=== PATIENT | female | born 1940 | race Caucasian/White ===

== ENCOUNTER 2020-03-10 20:16 | Inpatient (IN) ==
[2020-03-10] MEDS ORDERED: 0.9 % SODIUM CHLORIDE 1,000 ML IV ONE (20:32)
[2020-03-10] MEDS ORDERED: ONDANSETRON 4 MG/2 ML VIAL IV ONE (20:32)
--- NOTE | 2020-03-10 20:36 | Emergency Department Note ---
Abdominal Pain HPI General Chief Complaint: Abdominal Pain Stated Complaint: abd. pain Time Seen by Provider: 03/10/20 20:27 Source: patient Mode of arrival: wheelchair Limitations: no limitations History of Present Illness HPI Narrative: Narrative: 79-year-old female presents with upper abdominal pain. Mid upper abdomen but also into the right upper quadrant. Has had this in the past but not nearly this severe. Usually takes Prilosec in rest and it goes away. States this started Tuesday after eating something greasy. She took a Prilosec and it went away after a few hours. States today it started at about 3:00. States she did eat a lot of cheese today. Does have some nausea related to the pain. No vomiting urine. Has had a couple episodes of diarrhea the last couple of days. Denies any constipation issues. No longer has her appendix but does still have her gallbladder. Was told a long time ago she has gallstones but has not had a problem that she knows of until recently. No cough or cold symptoms. No other home treatments other than the Prilosec. Denies any chest pain or shortness of breath. Related Data Home Medications Medication Instructions Recorded Confirmed clopidogrel 75 mg PO DAILY 02/04/19 02/04/19 codeine-guaifenesin 118 ml PO PRN PRN 02/04/19 02/04/19 lisinopril 10 mg PO DAILY 02/04/19 02/04/19 pramipexole 0.25 mg PO HS 02/04/19 02/04/19 aspirin 81 mg tablet,delayed 81 mg PO .COMPLEX 09/18/19 09/18/19 release atorvastatin 10 mg tablet 10 mg PO QDAY 09/18/19 03/10/20 cholecalciferol (vitamin D3) 25 25 mcg PO QDAY 09/18/19 09/18/19 mcg (1,000 unit) capsule clopidogrel 75 mg tablet 75 mg PO QDAY 09/18/19 09/18/19 glucosamine HCl 500 mg tablet 500 mg PO QDAY tab 09/18/19 09/18/19 losartan 50 mg tablet 50 mg PO QDAY 09/18/19 03/10/20 nitroglycerin 0.4 mg sublingual 0.4 mg SUBLINGUAL ONCE 09/18/19 09/18/19 tablet omeprazole 20 mg capsule,delayed 20 mg PO QDAY 09/18/19 03/10/20 release pramipexole 0.25 mg tablet 0.25 mg PO QDAY 09/18/19 09/18/19 Allergies Allergy/AdvReac Type Severity Reaction Status Date / Time alendronate sodium Allergy Unknown nausea Verified 03/10/20 20:21 [From Fosamax] escitalopram Allergy Unknown constipatio Verified 03/10/20 20:21 n lisinopril Allergy Unknown cough Verified 03/10/20 20:21 sulfasalazine Allergy Unknown nausea Verified 03/10/20 20:21 [From Azulfidine] codeine AdvReac Intermediate Nausea Verified 03/10/20 20:21 Review of Systems ROS ROS Narrative: Narrative: All systems ED: reviewed and negative except as stated. PFSH Narrative Patient History Narrative: Narrative: Medical/Surgical/Family History All Active Problems (Updated 03/10/20 @ 21:54 by SULEMA Fox) Abdominal pain (Acute) Cholecystitis (Acute) Adjustment disorder with depressed mood (Acute) Muscle strain of left shoulder (Chronic) Chest pain (Chronic) Osteopenia (Chronic) Cramp in lower leg (Chronic) Subacromial bursitis (Chronic) Low back pain (Chronic) Constipation (Chronic) Ulcerative colitis (Chronic) GERD (gastroesophageal reflux disease) (Chronic) Temporomandibular joint disorder (Chronic) Venous insufficiency of leg (Chronic) Ventricular premature beats (Chronic) Coronary arteriosclerosis (Chronic) Essential hypertension (Chronic) Insomnia (Chronic) Depressive disorder (Chronic) Hyperlipidemia (Chronic) Subclinical hypothyroidism (Chronic) Dehydration (Chronic) Medical History Chest pain (Chronic) Constipation (Chronic) Coronary arteriosclerosis (Chronic) Cramp in lower leg (Chronic) Depressive disorder (Chronic) Essential hypertension (Chronic) GERD (gastroesophageal reflux disease) (Chronic) Hyperlipidemia (Chronic) Insomnia (Chronic) Low back pain (Chronic) Muscle strain of left shoulder (Chronic) Osteopenia (Chronic) Subacromial bursitis (Chronic) Subclinical hypothyroidism (Chronic) Temporomandibular joint disorder (Chronic) Ulcerative colitis (Chronic) Venous insufficiency of leg (Chronic) Ventricular premature beats (Chronic) Surgical History History of colonoscopy (Chronic) Family History Father Myocardial infarction Daughter Hyperlipidemia Social History Smoking Status: Never smoker Alcohol Intake Frequency: holiday/special occasion only Substance Use: does not use Exam Narrative Narrative: Narrative: General Limitations: no limitations General appearance: Present alert and grimacing Head Head: Present atraumatic and normocephalic Eye Eye: Present normal appearance; Absent conjunctival injection ENT ENT: Present normal exam and mucous membranes moist Chest Chest: Present symmetric chest wall rise Respiratory Respiratory: Present normal lung sounds bilaterally; Absent respiratory distress, rales/crackles, wheezes, stridor and accessory muscle use Cardiovascular Cardiovascular: Present regular rate and normal heart sounds Adbominal Abdominal: Present soft, tenderness (Mid epigastric and right upper quadrant) and normal bowel sounds; Absent distention, guarding, rebound and rigidity Extremities Extremities: Present normal inspection; Absent pedal edema Back Back: Absent CVA tenderness (R) and CVA tenderness (L) Neurological Neurological: Present alert and oriented X3; Absent motor sensory deficit Psychiatric Psychiatric: Present normal affect and normal mood Skin Skin: Present warm (WNL), dry, intact and normal color Course Course Course Narrative: Patient has gallstones, multiple and thickened wall. Acute cholecystitis. At 1950 I did speak with Dr. Giron, surgeon, who agrees accept this patient. If not any beds available to the morning for that reason patient will remain in the ER until bed becomes available. He will concur. Pain and nausea medication orders, Zosyn, IV fluids, n.p.o. Vital Signs Vital signs: Vital Signs Temperature 96.7 F L 03/10/20 20:17 Pulse Rate 76 03/10/20 20:17 Respiratory Rate 17 03/10/20 20:17 Blood Pressure 188/75 03/10/20 20:17 Pulse Oximetry (%) 98 03/10/20 20:17 Temperature 96.7 F L 03/10/20 20:17 Pulse Rate 76 03/10/20 20:17 Respiratory Rate 17 03/10/20 20:17 Blood Pressure 188/75 03/10/20 20:17 Pulse Oximetry (%) 98 03/10/20 20:17 MDM MDM Narrative Medical decision making narrative: Narrative: Lab Data Result diagrams: 03/10/20 20:46 03/10/20 20:46 Labs: Lab Results 03/10/20 03/10/20 Range/Units 20:46 20:46 WBC 7.7 (4.5-11.0) K/mcL RBC 3.47 L (4.00-5.20) M/mcL Hgb 11.2 L (12.0-15.0) g/dL Hct 34.2 L (36.0-48.0) % MCV 98.6 (80.0-100.0) fL MCH 32.3 (26.0-34.0) pg MCHC 32.7 (31.0-36.0) g/dL RDW 12.4 (11.5-14.5) % Plt Count 251 (140-440) K/mcL MPV 9.2 (7.4-10.4) fL Neut % (Auto) 72.6 (38.0-78.0) % Lymph % (Auto) 16.0 (15.0-49.0) % [place] % (Auto) 6.2 (1.0-12.0) % Eos % (Auto) 4.8 (0.0-7.0) % Baso % (Auto) 0.4 (0.0-2.0) % Lymph # (Auto) 1.23 L (1.50-4.80) K/mcL [place] # (Auto) 0.48 (0.10-0.90) K/mcL Eos # (Auto) 0.37 (0.00-0.70) K/mcL Baso # (Auto) 0.03 (0.00-0.20) K/mcL Absolute Neutrophils 5.58 (1.80-8.00) K/mcL POC Creatinine 0.8 (0.6-1.2) mg/dL Discharge Plan Patient/Caregiver Discharge Instructions Pt seen by [employer] SALES LEADER/PA only: Yes Clinical Impression: Abdominal pain, Cholecystitis Patient Disposition: Still a Patient Condition: Fair Prescriptions: No Action aspirin 81 mg tablet,delayed release (DR/EC) 81 mg PO .COMPLEX RF: 0 glucosamine HCl 500 mg tablet 500 mg PO QDAY RF: 0 atorvastatin 10 mg tablet 10 mg tablet 10 mg PO QDAY RF: 0 losartan 50 mg tablet 50 mg PO QDAY RF: 0 nitroglycerin 0.4 mg tablet, sublingual 0.4 mg SUBLINGUAL ONCE RF: 0 clopidogrel [Plavix] 75 mg tablet 75 mg PO QDAY RF: 0 pramipexole 0.25 mg tablet 0.25 mg PO QDAY RF: 0 omeprazole 20 mg capsule,delayed release(DR/EC) 20 mg PO QDAY RF: 0 cholecalciferol (vitamin D3) 25 mcg (1,000 unit) capsule 25 mcg PO QDAY RF: 0 clopidogrel 75 MG tablet 75 mg PO DAILY RF: 0 lisinopril 10 MG tablet 10 mg PO DAILY RF: 0 pramipexole 0.25 MG tablet 0.25 mg PO HS RF: 0 codeine-guaifenesin 118 ML liquid 118 ml PO PRN PRN (Reason: Cough) RF: 0
[2020-03-10 20:55] LABS: POC Creatinine 0.8 mg/dL (0.6-1.2)
[2020-03-10] MEDS: HYDROmorphone 0.5 MG/0.5 ML SYRINGE IV PRN (21:00)
[2020-03-10 21:41] LABS: Basophils # (Auto) 0.03 K/mcL (0.00-0.20); Basophils % (Auto) 0.4 % (0.0-2.0); Eosinophils # (Auto) 0.37 K/mcL (0.00-0.70); Eosinophils % (Auto) 4.8 % (0.0-7.0); Hematocrit 34.2 % (36.0-48.0); Hemoglobin 11.2 g/dL (12.0-15.0); Lymphocytes # (Auto) 1.23 K/mcL (1.50-4.80); Mean Cell Volume 98.6 fL (80.0-100.0); Mean Corpuscular HGB Conc 32.7 g/dL (31.0-36.0); Mean Platelet Volume 9.2 fL (7.4-10.4); Monocytes # (Auto) 0.48 K/mcL (0.10-0.90); Monocytes % (Auto) 6.2 % (1.0-12.0); Neutrophils % (Auto) 72.6 % (38.0-78.0); Platelet Count 251 K/mcL (140-440); RBC 3.47 M/mcL (4.00-5.20); Red Cell Distribution Width 12.4 % (11.5-14.5); WBC 7.7 K/mcL (4.5-11.0)
[2020-03-10] MEDS ORDERED: ONDANSETRON 4 MG/2 ML VIAL IV PRN (21:49)
[2020-03-10] MEDS ORDERED: HYDROmorphone 1 MG/ML SYRINGE IV PRN (21:49)
[2020-03-10 22:07] LABS: ALT/SGPT 12 U/L (<40); AST/SGOT 15 U/L (<32); Albumin 4.7 gm/dL (3.2-5.2); Albumin/Globulin Ratio 1.7 (1.0-2.3); Alkaline Phosphatase 65 U/L (39-117); Bilirubin,Total 0.2 mg/dL (0.1-1.0); Blood Urea Nitrogen 21 mg/dL (8-23); Calcium 9.8 mg/dL (8.6-10.4); Carbon Dioxide 20 mmol/L (22-30); Chloride 98 mmol/L (96-108); Globulin 2.7 gm/dL (2.2-3.7); Glomerular Filtration Rate 60; Glucose 115 mg/dL (70-105)
[2020-03-11 00:19] LABS: Appearance,Urine CLEAR (Clear); Bilirubin,Urine Negative (Negative); Color,Urine YELLOW; Culture Indicated,Urine No; Glucose,Urine (UA) Negative (Negative); Ketones,Urine Negative (Negative); Leukocyte Esterase,Urine 25 /ug (Negative); Nitrate,Urine Negative (Negative); Protein,Urine Negative (Negative); Specific Gravity,Urine 1.013 (1.000-1.035); Urine Blood 0.03 mg/dL (Negative); Urine RBC 1 /hpf (0-1); Urine Squamous Epithelial Cell 0 /hpf (0-4); Urine WBC 2 /hpf (0-4); Urobilinogen,Urine Negative
[2020-03-11] MEDS: PIPERACILLIN SODIUM/TAZOBACTAM 3.375 GM in DEXTROSE 5% IN WATER 50 ML IV SCH ×5 (00:46→23:44)
[2020-03-11] MEDS: HYDROmorphone 0.5 MG/0.5 ML SYRINGE IV PRN ×3 (00:46→21:00)
[2020-03-11] MEDS: 0.9 % SODIUM CHLORIDE 1,000 ML IV SCH ×5 (01:00→17:00)
--- NOTE | 2020-03-11 08:04 | Ultrasound Report ---
History: Right upper quadrant pain FINDINGS: A 1.7 x 1.8 x 2.1 cm subcapsular cyst is present posteriorly in the upper portion of the right lobe of the liver. Liver is otherwise normal in size but there may be mild fatty infiltration. Doppler shows normal blood flow in the hepatic and portal veins. The gallbladder wall is thickened and edematous. The patient was tender while scanning over the gallbladder. There is a large amount of sludge and multiple stones within the lumen. The wall measures up to 6.8 mm in thickness. The stones measure up to 1.5 cm. No para cholecystic fluid collection is present. The extrahepatic bile ducts are upper limits of normal caliber and measure up to 7 mm. No obvious stone is detected in the bile duct. Contiguous with the distal bile duct at the level of the pancreas there is a vague echogenic structure which may be a calcification in the pancreas but does not appear to be a common bile duct stone. Pancreas otherwise appears normal and homogeneous without evidence of inflammation or mass. Pancreatic duct is nondilated. The right kidney measures 4.4 x 4.8 x 9.6 cm. There is relative thinning of the cortex. The cortex is nearly isoechoic with adjacent liver. This suggests low-grade chronic medical renal disease. IMPRESSION: Cholelithiasis and cholecystitis Interpreted and Authenticated by: Ronald Mace 03/11/20
--- NOTE | 2020-03-11 09:02 | XRay Report ---
HISTORY: Preop for cholecystectomy FINDINGS: Minor interstitial fibrosis is present in both lung apices. There is no evidence of pneumonia, mass or congestive heart failure. The heart size, mediastinum and lakshmi are normal. IMPRESSION: Normal chest. Interpreted and Authenticated by: Ronald Mace 03/11/20
[2020-03-11] MEDS ORDERED: PIPERACILLIN SODIUM/TAZOBACTAM 3.375 GM in DEXTROSE 5% IN WATER 50 ML IV SCH (11:00)
[2020-03-11 12:13] LABS: INR 0.9 (0.9-1.1); Prothrombin Time 12.6 sec (11.9-14.5)
--- NOTE | 2020-03-11 12:40 | General Surg History&Physical ---
HPI History of Present Illness Patient information: Note initiated : 03/11/20 at 12:39 pm Service Date, if different from initiated Date: [] Patient: Dalila Henderson a 79 y/o F admitted on 03/11/20 for abd. pain. Chief Complaint: [] Chief complaint: recurrent abdominal pain with nausea History of present illness: Ms. Henderson is a 79 year old F admitted for treatment of gallstone disease. She had onset of midabdominal pain on Tuesday of this past week. She had associated nausea. This gradually improved on Tuesday. Yesterday about 3 PM after eating. She had recurrent epigastric pain which continued until she was seen in the emergency room. She had nausea without vomiting. Upper abdominal ultrasound shows multiple gallstones with thickening of the gallbladder wall and she had tenderness in the right upper quadrant. L FTs are normal. Patient has cholecystitis with cholelithiasis and is counseled for laparoscopic cholecystectomy. Patient has recent positive COVID screen. She is totally asymptomatic and states that she feels great otherwise Review of Systems All systems: reviewed and no additional remarkable complaints except as stated Review of systems: intermittent leg cramps PFSH PFSH All Active Problems (Updated 03/11/20 @ 12:47 by Jonny Giron MD) COVID-19 determined by clinical diagnostic criteria (Acute) Cholelithiasis and cholecystitis without obstruction (Acute) Abdominal pain (Acute) Cholecystitis (Acute) Adjustment disorder with depressed mood (Acute) Muscle strain of left shoulder (Chronic) Chest pain (Chronic) Osteopenia (Chronic) Cramp in lower leg (Chronic) Subacromial bursitis (Chronic) Low back pain (Chronic) Constipation (Chronic) Ulcerative colitis (Chronic) GERD (gastroesophageal reflux disease) (Chronic) Temporomandibular joint disorder (Chronic) Venous insufficiency of leg (Chronic) Ventricular premature beats (Chronic) Coronary arteriosclerosis (Chronic) Essential hypertension (Chronic) Insomnia (Chronic) Depressive disorder (Chronic) Hyperlipidemia (Chronic) Subclinical hypothyroidism (Chronic) Dehydration (Chronic) Medical History Chest pain (Chronic) Constipation (Chronic) Coronary arteriosclerosis (Chronic) Cramp in lower leg (Chronic) Depressive disorder (Chronic) Essential hypertension (Chronic) GERD (gastroesophageal reflux disease) (Chronic) Hyperlipidemia (Chronic) Insomnia (Chronic) Low back pain (Chronic) Muscle strain of left shoulder (Chronic) Osteopenia (Chronic) Subacromial bursitis (Chronic) Subclinical hypothyroidism (Chronic) Temporomandibular joint disorder (Chronic) Ulcerative colitis (Chronic) Venous insufficiency of leg (Chronic) Ventricular premature beats (Chronic) Surgical History History of colonoscopy (Chronic) Family History Father Myocardial infarction Daughter Hyperlipidemia Social History household members: other details: grandson housing: apartment lives independently: Yes marital status: occupational status: employed 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[employer] leisure activities: other smoking status: Never smoker alcohol intake frequency: holiday/special occasion only substance use type: does not use MEDS/ALLERGIES Home Medications and Allergies Home Medications Medication Instructions Recorded Confirmed Type pramipexole 0.5 mg PO HS 02/04/19 02/04/19 History aspirin 81 mg tablet,delayed 81 mg PO .COMPLEX 09/18/19 09/18/19 History release atorvastatin 10 mg tablet 10 mg PO QDAY 09/18/19 03/11/20 History cholecalciferol (vitamin D3) 25 25 mcg PO QDAY 09/18/19 09/18/19 History mcg (1,000 unit) capsule glucosamine HCl 500 mg tablet 500 mg PO QDAY tab 09/18/19 09/18/19 History losartan 50 mg tablet 50 mg PO QDAY 09/18/19 03/11/20 History nitroglycerin 0.4 mg sublingual 0.4 mg SUBLINGUAL ONCE 09/18/19 09/18/19 History tablet omeprazole 20 mg capsule,delayed 20 mg PO QDAY 09/18/19 03/11/20 History release sertraline [Zoloft] 1 mg PO 03/11/20 History Allergies Allergy/AdvReac Type Severity Reaction Status Date / Time alendronate sodium AdvReac Mild nausea Verified 03/11/20 10:37 [From Fosamax] codeine AdvReac Mild Nausea Verified 03/11/20 10:37 escitalopram AdvReac Mild constipatio Verified 03/11/20 10:37 n lisinopril AdvReac Mild cough Verified 03/11/20 10:37 sulfasalazine AdvReac Mild nausea Verified 03/11/20 10:37 [From Azulfidine] Physical Examination Vital Signs Vital signs: Temp Pulse Resp BP Pulse Ox 99.2 F H 79 18 125/65 95 03/11/20 12:18 03/11/20 12:18 03/11/20 12:18 03/11/20 12:18 03/11/20 12:18 General physical appearance General physical exam: well developed, well nourished and no distress Eyes Eye exam: PERRL and normal ocular movement ENT ENT exam: normal nares, normal mucosa, no hearing loss and no congestion Head Head exam IM: Present atraumatic, normal inspection and normocephalic Neck Neck exam: no masses, no bruits, trachea midline, no lymphadenopathy and no venous distension Cardiovascular Cardiovascular exam IM: Present normal rate and rhythm, RRR, +S1 and +S2; Absent gallop and JVD Respiratory Respiratory exam: normal expansion, normal respiratory effort and clear to auscultation Abdomen Abdomen: Present tender (tenderness in epigastrium and right upper quadrant with guarding) and bowel sounds (normal active bowel sounds) Integumentary Integumentary: Present no rash, no growths and no abnormal pigmentation Neurologic Neurologic: Present normal coordination and normal sensation; Absent memory loss Musculoskeletal Musculoskeletal: Present normal gait and normal posture Psychiatric Psychiatric: Present oriented to time, oriented to person, oriented to place, speech is normal and memory intact Results Labs Result diagrams: 03/10/20 20:46 03/10/20 20:46 Labs: Abnormal lab results 03/10/20 03/10/20 03/10/20 Range/Units 20:46 20:46 22:49 RBC 3.47 L (4.00-5.20) M/mcL Hgb 11.2 L (12.0-15.0) g/dL Hct 34.2 L (36.0-48.0) % Lymph # (Auto) 1.23 L (1.50-4.80) K/mcL Carbon Dioxide 20 L (22-30) mmol/L Glucose 115 H (70-105) mg/dL Ur Leukocyte Esterase 25 A (Negative) /ug Diabetes panel 03/10/20 Range/Units 20:46 Sodium 134 (133-145) mmol/L Potassium 3.8 (3.3-5.1) mmol/L Chloride 98 (96-108) mmol/L Carbon Dioxide 20 L (22-30) mmol/L BUN 21 (8-23) mg/dL Creatinine 0.9 (0.6-1.1) mg/dL Glucose 115 H (70-105) mg/dL Calcium 9.8 (8.6-10.4) mg/dL AST 15 (<32) U/L ALT 12 (<40) U/L Alkaline Phosphatase 65 (39-117) U/L Total Protein 7.4 (5.9-8.4) gm/dL Albumin 4.7 (3.2-5.2) gm/dL Calcium panel 03/10/20 Range/Units 20:46 Calcium 9.8 (8.6-10.4) mg/dL Albumin 4.7 (3.2-5.2) gm/dL Pituitary panel 03/10/20 Range/Units 20:46 Sodium 134 (133-145) mmol/L Potassium 3.8 (3.3-5.1) mmol/L Chloride 98 (96-108) mmol/L Carbon Dioxide 20 L (22-30) mmol/L BUN 21 (8-23) mg/dL Creatinine 0.9 (0.6-1.1) mg/dL Glucose 115 H (70-105) mg/dL Calcium 9.8 (8.6-10.4) mg/dL Adrenal panel 03/10/20 Range/Units 20:46 Sodium 134 (133-145) mmol/L Potassium 3.8 (3.3-5.1) mmol/L Chloride 98 (96-108) mmol/L Carbon Dioxide 20 L (22-30) mmol/L BUN 21 (8-23) mg/dL Creatinine 0.9 (0.6-1.1) mg/dL Glucose 115 H (70-105) mg/dL Calcium 9.8 (8.6-10.4) mg/dL Total Bilirubin 0.2 (0.1-1.0) mg/dL AST 15 (<32) U/L ALT 12 (<40) U/L Alkaline Phosphatase 65 (39-117) U/L Total Protein 7.4 (5.9-8.4) gm/dL Albumin 4.7 (3.2-5.2) gm/dL All other labs normal. A/P Assessment and plan (1) Cholelithiasis and cholecystitis without obstruction: Status: Acute Qualifiers: Cholelithiasis location: gallbladder Cholecystitis acuity: acute and chronic Qualified Code(s): K80.12 - Calculus of gallbladder with acute and chronic cholecystitis without obstruction (2) COVID-19 determined by clinical diagnostic criteria: Status: Acute (3) Coronary arteriosclerosis: Status: Chronic (4) Essential hypertension: Status: Chronic Narrative A/P Narrative: patient is counseled for laparoscopic cholecystectomy. Safety precautions for COVID positive status will be exercise Time Spent With Patient Time: Total time spent is greater than 50% in coordination of care (as documented) at patient's floor/unit and/or counseling patient:
[2020-03-11] MEDS ORDERED: ONDANSETRON 4 MG/2 ML VIAL ONE (13:22)
[2020-03-11] MEDS ORDERED: PROPOFOL 200 MG/20 ML VIAL IV ONE (13:22)
[2020-03-11] MEDS ORDERED: ROCURONIUM 10 MG/ML ML IV ONE (13:22)
[2020-03-11] MEDS ORDERED: fentaNYL 250 MCG/5 ML VIAL IV ONE (13:22)
[2020-03-11] MEDS ORDERED: LIDOCAINE HCL/PF 100 MG/5 ML SYRINGE IV ONE (13:22)
[2020-03-11] MEDS ORDERED: KETAMINE 100 MG/ML ML ONE (13:22)
[2020-03-11] MEDS ORDERED: DEXAMETHASONE 10 MG/ML VIAL ONE (13:22)
[2020-03-11] MEDS ORDERED: SUGAMMADEX SODIUM 200 MG/2 ML VIAL IV ONE (13:22)
[2020-03-11] MEDS ORDERED: ACETAMINOPHEN 1,000 MG/100 ML BOTTLE IV ONE (14:01)
[2020-03-11] MEDS ORDERED: NALOXONE HCL 0.4 MG/ML VIAL IV PRN (14:01)
[2020-03-11] MEDS ORDERED: PROMETHAZINE 25 MG/ML VIAL IM PRN (14:01)
[2020-03-11] MEDS ORDERED: MEPERIDINE 50 MG/ML INJECTION IM PRN (14:01)
[2020-03-11] MEDS ORDERED: diphenhydrAMINE 50 MG/ML VIAL IV PRN (14:01)
[2020-03-11] MEDS ORDERED: BENZOCAINE/MENTHOL 1 LOZENGE PO PRN (14:01)
[2020-03-11] MEDS ORDERED: IPRATROPIUM/ALBUTEROL 3 ML AMPUL.NEB NEB PRN (14:01)
[2020-03-11] MEDS ORDERED: ONDANSETRON 4 MG/2 ML VIAL IV PRN ×3 (14:01→16:10)
[2020-03-11] MEDS ORDERED: PROMETHAZINE 25 MG/ML VIAL IV PRN (14:01)
[2020-03-11] MEDS ORDERED: LACTATED RINGERS 250 ML IV PRN (14:01)
[2020-03-11] MEDS ORDERED: LACTATED RINGERS 1,000 ML IV SCH (14:15)
--- NOTE | 2020-03-11 14:42 | Brief Operative Note ---
Brief Operative Note Date of procedure: 03/11/20 Pre-op diagnosis: ACUTE CHOLECYSTITIS WITH CHOLELITHIASIS Post-op diagnosis: other (ACUTE CHOLECYSTITIS WITH CHOLELITHIASIS AND EMPYEMA) Procedure: LAPAROSCOPIC CHOLECYSTECTOMY Grafts/Implants: No (TONY DRAIN X1) Anesthesia: GETA Findings: ACUTE SEVERE INFLAMMATION OF GALLBLADDER FILLED WITH PUS Complications: none Surgeon: Jonny Giron Estimated blood loss (cc): 30 Specimens Removed/Pathology: other (GALLBLADDER) Condition: stable Disposition: PACU
[2020-03-11] MEDS ORDERED: oxyCODONE HCL 5 MG TABLET PO PRN (14:58)
[2020-03-11] MEDS: fentaNYL 100 MCG/2 ML VIAL IV PRN ×4 (15:09→15:28)
[2020-03-11] MEDS: MEPERIDINE 25 MG/ML SYRINGE IV PRN ×2 (15:22→15:27)
[2020-03-11] MEDS ORDERED: HYDROmorphone 1 MG/ML SYRINGE IV PRN (16:10)
[2020-03-11] MEDS ORDERED: 0.9 % SODIUM CHLORIDE 1,000 ML IV SCH (16:10)
[2020-03-11] MEDS: PANTOPRAZOLE 40 MG VIAL IV SCH (16:58)
[2020-03-11] MEDS: ACETAMINOPHEN 1,000 MG/100 ML BOTTLE IV SCH (20:22)
[2020-03-12] MEDS: 0.9 % SODIUM CHLORIDE 1,000 ML IV SCH ×4 (02:31→22:40)
[2020-03-12] MEDS: HYDROmorphone 0.5 MG/0.5 ML SYRINGE IV PRN ×4 (04:34→13:33)
[2020-03-12] MEDS ORDERED: MAGNESIUM HYDROXIDE 30 ML ORAL.SUSP PO PRN (04:44)
[2020-03-12] MEDS: ACETAMINOPHEN 1,000 MG/100 ML BOTTLE IV SCH ×3 (04:51→14:22)
[2020-03-12] MEDS: SIMETHICONE 80 MG TAB.CHEW CHEWED PRN ×3 (04:52→21:06)
[2020-03-12] MEDS ORDERED: MAGNESIUM HYDROXIDE 30 ML ORAL.SUSP ONE (04:53)
[2020-03-12] MEDS ORDERED: METOCLOPRAMIDE 10 MG/2 ML VIAL ONE (04:53)
[2020-03-12] MEDS: METOCLOPRAMIDE 10 MG/2 ML VIAL IV SCH ×4 (05:24→23:26)
[2020-03-12] MEDS: PIPERACILLIN SODIUM/TAZOBACTAM 3.375 GM in DEXTROSE 5% IN WATER 50 ML IV SCH ×4 (05:24→23:26)
[2020-03-12] MEDS ORDERED: METOCLOPRAMIDE 10 MG/2 ML VIAL IV PRN (06:00)
[2020-03-12] MEDS: PANTOPRAZOLE 40 MG VIAL IV SCH ×2 (06:59→17:05)
[2020-03-12] MEDS: LOSARTAN 50 MG TABLET PO SCH (08:14)
[2020-03-12] MEDS: SERTRALINE 50 MG TABLET PO SCH (08:14)
[2020-03-12 14:18] LABS: Basophils # (Auto) 0.01 K/mcL (0.00-0.20); Basophils % (Auto) 0.2 % (0.0-2.0); Eosinophils # (Auto) 0.12 K/mcL (0.00-0.70); Eosinophils % (Auto) 1.9 % (0.0-7.0); Hematocrit 29.6 % (36.0-48.0); Hemoglobin 9.4 g/dL (12.0-15.0); Mean Cell Volume 102.4 fL (80.0-100.0); Mean Corpuscular HGB Conc 31.8 g/dL (31.0-36.0); Mean Platelet Volume 9.5 fL (7.4-10.4); Monocytes # (Auto) 0.41 K/mcL (0.10-0.90); Monocytes % (Auto) 6.5 % (1.0-12.0); Neutrophils % (Auto) 80.4 % (38.0-78.0); Platelet Count 185 K/mcL (140-440); RBC 2.89 M/mcL (4.00-5.20); Red Cell Distribution Width 12.4 % (11.5-14.5); WBC 6.4 K/mcL (4.5-11.0)
[2020-03-12 14:20] LABS: ALT/SGPT 595 U/L (<40); AST/SGOT 353 U/L (<32); Albumin 3.2 gm/dL (3.2-5.2); Albumin/Globulin Ratio 1.2 (1.0-2.3); Alkaline Phosphatase 181 U/L (39-117); Bilirubin,Direct < 0.2 mg/dL (<0.3); Bilirubin,Total 0.4 mg/dL (0.1-1.0); Blood Urea Nitrogen 11 mg/dL (8-23); Calcium 8.3 mg/dL (8.6-10.4); Carbon Dioxide 22 mmol/L (22-30); Chloride 102 mmol/L (96-108); Globulin 2.6 gm/dL (2.2-3.7); Glomerular Filtration Rate 60; Glucose 117 mg/dL (70-105); Lactate Dehydrogenase 283 U/L (135-225); Phosphorous 3.9 mg/dL (2.5-4.5); Triglycerides 65 mg/dL (<150); Uric Acid 2.9 mg/dL (2.5-8.0)
[2020-03-12] MEDS ORDERED: BISACODYL 10 MG SUPP.RECT PR PRN (14:52)
--- NOTE | 2020-03-12 15:14 | General Surgery Progress Note ---
SUBJECTIVE Subjective Patient information: Note initiated : 03/12/20 at 3:03 pm Service Date, if different from initiated Date: [] Patient: Dalila Henderson 79 y/o F admitted on 03/12/20 for abd. pain. Chief Complaint: [] Principal diagnosis: postoperative abdominal pain Interval history: 79-year-old female status post laparoscopic cholecystectomy yesterday. She had acute cholecystitis with empyema of the gallbladder. Her s urgery proceeded uneventfully, though she had some oozing from the bed of the liver due to the severe inflammation. This was drained. She has serosanguineous drainage at this time. The patient is complaining of gaseous distention without ability to pass flatus. She denies nausea. Labs reveal transaminases to be elevated slightly, but bilirubin is normal and her alkaline phosphatase is only 188. This is probably related to cauterization of the liver bed. White blood count 6.4, hemoglobin 9.4, hematocrit 29.6. Bowel cultures are growing Escherichia coli and Klebsiella. Constitutional Vitals: Vital Signs Temp Pulse Resp BP Pulse Ox 98.4 F 74 16 132/70 92 03/12/20 11:45 03/12/20 11:45 03/12/20 11:45 03/12/20 11:45 03/12/20 11:45 Period Temp Pulse Resp BP Sys/Rodriguez Pulse Ox Last 24 Hr 97.6 F-98.4 F 63-89 14-16 132-174/55-75 90-98 Intake and Output 03/12/20 03/12/20 03/12/20 05:59 13:59 21:59 Intake Total 1340 1989 Output Total 930 730 Balance 410 1260 Intake & Output: Intake & Output 03/12/20 03/12/20 03/12/20 05:59 13:59 21:59 Intake Total 1340 1989 Output Total 930 730 Balance 410 1260 Intake: IV 1100 1150 Sodium Chloride 0.9% 1,000 ml @ 950 1000 100 mls/hr IV .Q10H [facility] Rx#: [id number] Zosyn 3.375 gm In Dextrose 5% 50 50 in Water 50 ml @ 100 mls/hr IV Q6H [facility] Rx#:[id number] Oral 240 840 Output: Drainage 30 Right Abdomen 30 Drainage 80 50 Right Abdomen 80 50 Void Amount 850 650 Other: Meal Lunch Percent of Meal Consumed 50% Feeding Ability Independent Urine Appearance Clear Urine Color Bright Yellow Urine Odor Normal Head Head exam: Present atraumatic, normal inspection and normocephalic Eye Eye exam: Present EOMI Pupils: Present normal accommodation and PERRL ENT ENT exam: Present mucous membranes moist and normal exam Neck Neck exam: Present full ROM and normal inspection; Absent tenderness Respiratory Respiratory exam: Present normal respiratory exam and CTAB; Absent rales, rhonchi and wheezes Cardiovascular Cardiovascular exam: Present normal rate and rhythm, +S1 and +S2; Absent gallop GI/Abdominal GI/Abdominal exam: Present normal bowel sounds, soft, distended, hyperactive bowel sounds and tenderness (mild incisional tenderness) Extremities Exam Extremities exam: Present full ROM and neurovascular intact; Absent tenderness Back Exam Back exam: Present full ROM and normal inspection Neurological Exam Neurological exam: Present alert, CN II-XII intact and reflexes normal Psychiatric Psychiatric exam: Present normal affect A/P Assessment and plan (1) Cholelithiasis and cholecystitis without obstruction: Status: Acute Qualifiers: Cholelithiasis location: gallbladder Cholecystitis acuity: acute and chronic Qualified Code(s): K80.12 - Calculus of gallbladder with acute and chronic cholecystitis without obstruction (2) COVID-19 determined by clinical diagnostic criteria: Status: Acute (3) Adynamic ileus: Status: Acute (4) GERD (gastroesophageal reflux disease): Status: Chronic Qualifiers: Esophagitis presence: without esophagitis Qualified Code(s): K21.9 - Gastro-esophageal reflux disease without esophagitis (5) Essential hypertension: Status: Chronic Narrative A/P Narrative: patient's discharge will be delayed. She will be continued on Zosyn. Repeat CBC and patient and lipase in the morning. Probable discharge on Levaquin tomorrow Time Spent With Patient Time: Total time spent is greater than 50% in coordination of care (as documented) at patient's floor/unit and/or counseling patient:
--- NOTE | 2020-03-12 16:37 | Operative Note ---
DATE OF OPERATION: 03/12/2020 DATE OF PROCEDURE: 03/11/2020 PREOPERATIVE DIAGNOSES: Acute cholecystitis with cholelithiasis. POSTOPERATIVE DIAGNOSES: Acute cholecystitis with cholelithiasis and empyema. PROCEDURE: Laparoscopic cholecystectomy. SURGEON: Jonny Giron M.D. FINDINGS: Acute, severe inflammation of the gallbladder filled with pus. DESCRIPTION OF PROCEDURE: Under general anesthesia, the patient's abdomen was prepped and draped in a sterile field. Timeout procedure was carried out as per protocol. Supraumbilical incision was made and Veress needle was inserted uneventfully. Abdomen was insufflated with 2.2 liters of CO2. A 12 mm port was placed. Laparoscope was placed. A very dilated, inflamed gallbladder was noted. Under videoscopic guidance, a 12 mm port and two 5 mm ports were placed in the right subcostal region. The gallbladder was drained with a Weck needle. It contained a large volume of pure pus. The gallbladder was grasped and positioned. Acute and chronic adhesions to the wall of the gallbladder were dissected with blunt dissection and electrocautery. Dissection was carried down to the infundibulum. Cystic duct was dissected and two branches of the cystic artery, one that traversed anteriorly and the other one posteriorly. They were dissected to the wall of the gallbladder, clipped with four clips and divided. The cystic duct was then the only structure that attached the gallbladder to the common bile duct. The cystic duct was dissected back to the gallbladder. It was very thickened and edematous, so it was transected using an Endo LEATHA stapler. The gallbladder was then from the infrahepatic bed using electrocautery and some blunt dissection. There was significant oozing from the bed. Once the gallbladder was removed, it was retrieved in an EndoCatch device. The bed was then cauterized to control most of the bleeding. There was still some slight oozing in areas where there appeared to be some superficial vessels. These were not cauterized. The bed was covered with Surgicel and a 10 Darian drain was placed. It was brought out through the most lateral incision. Copious irrigation was carried out. CO2 was allowed to escape from the abdomen and the ports were removed. The drain was secured with a 2-0 Prolene. The supraumbilical incision was closed with interrupted 0 Vicryl. Skin incisions were closed with pk. Tegaderm dressings were placed. The patient tolerated the procedure well. She was awakened, transferred to a bed, and taken to the postanesthetic care unit in stable, satisfactory condition. LCS:[email or web address] Job ID: [id number] Doc ID: [id number] Jonny Giron M.D.
[2020-03-13] MEDS: 0.9 % SODIUM CHLORIDE 1,000 ML IV SCH (03:18)
[2020-03-13] MEDS: SIMETHICONE 80 MG TAB.CHEW CHEWED PRN (04:24)
[2020-03-13] MEDS: PIPERACILLIN SODIUM/TAZOBACTAM 3.375 GM in DEXTROSE 5% IN WATER 50 ML IV SCH ×2 (05:58→12:05)
[2020-03-13] MEDS: METOCLOPRAMIDE 10 MG/2 ML VIAL IV SCH ×2 (05:58→12:42)
[2020-03-13 06:44] LABS: Basophils # (Auto) 0.02 K/mcL (0.00-0.20); Basophils % (Auto) 0.3 % (0.0-2.0); Eosinophils # (Auto) 0.05 K/mcL (0.00-0.70); Eosinophils % (Auto) 0.7 % (0.0-7.0); Hematocrit 35.3 % (36.0-48.0); Hemoglobin 10.8 g/dL (12.0-15.0); Lymphocytes # (Auto) 0.64 K/mcL (1.50-4.80); Lymphocytes % (Auto) 9.2 % (15.0-49.0); Mean Cell Volume 103.2 fL (80.0-100.0); Mean Corpuscular HGB Conc 30.6 g/dL (31.0-36.0); Mean Platelet Volume 9.2 fL (7.4-10.4); Monocytes % (Auto) 5.8 % (1.0-12.0); Platelet Count 233 K/mcL (140-440); RBC 3.42 M/mcL (4.00-5.20); Red Cell Distribution Width 12.5 % (11.5-14.5); WBC 6.9 K/mcL (4.5-11.0)
[2020-03-13 07:05] LABS: ALT/SGPT 449 U/L (<40); AST/SGOT 168 U/L (<32); Albumin 3.8 gm/dL (3.2-5.2); Albumin/Globulin Ratio 1.3 (1.0-2.3); Alkaline Phosphatase 188 U/L (39-117); Bilirubin,Direct < 0.2 mg/dL (<0.3); Bilirubin,Total 0.4 mg/dL (0.1-1.0); Blood Urea Nitrogen 9 mg/dL (8-23); Calcium 9.2 mg/dL (8.6-10.4); Carbon Dioxide 24 mmol/L (22-30); Chloride 101 mmol/L (96-108); Globulin 2.9 gm/dL (2.2-3.7); Glomerular Filtration Rate 69; Glucose 104 mg/dL (70-105); Lactate Dehydrogenase 209 U/L (135-225); Phosphorous 2.2 mg/dL (2.5-4.5); Triglycerides 84 mg/dL (<150); Uric Acid 2.5 mg/dL (2.5-8.0)
[2020-03-13] MEDS: PANTOPRAZOLE 40 MG VIAL IV SCH (07:17)
[2020-03-13] MEDS: SERTRALINE 50 MG TABLET PO SCH (07:52)
[2020-03-13] MEDS: LOSARTAN 50 MG TABLET PO SCH (07:53)
--- NOTE | 2020-03-13 12:34 | Discharge Summary ---
Discharge Provider Provider Patient information: Note initiated : 03/13/20 at 12:25 pm Service Date, if different from initiated Date: [] Patient: Dalila Henderson 79 y/o F admitted on 03/12/20 for abd. pain. Chief Complaint: [] Date of admission: 03/12/20 14:53 Discharge date: 03/13/20 Admitting clinician: Jonny Giron Consults: 03/10/20 Consult to Physician [CONS] Stat Comment: Consulting Provider: Jonny Giron Reason For Exam: Physician to Consult Attending physician on discharge: Jonny Giron Discharging clinician: Jonny Giron COURSE Hospital Course Hospital course: 79-year-old female who was admitted with acute abdominal pain, nausea. The pain radiated through to her back and epigastrium. She was noted to have leukocytosis and CT evidence of acute cholecystitis with cholelithiasis. She underwent laparoscopic cholecystectomy on 11 March. Yesterday she had significant abdominal pain with distention and inability to pass flatus. She was treated symptomatically and overnight she has had bowel movements and is now passing gas without difficulty. She is afebrile. Her white count is normal. Her transaminases were elevated on yesterday, but trended down. Her bilirubin is normal. Patient is tolerating a diet without difficulty. She is stable for discharge home. The patient is COVID positive Discharge diagnosis: .acute cholecystitis with cholelithiasis Secondary discharge diagnosis: acute empyema of gallbladder. CovID positive status, asymptomatic Reason for admission: acute cholecystitis Procedures: laparoscopic cholecystectomy Pertinent studies/significant findings: positive COVID STATUS Complications: none Time Spent with Patient Time attestation: Total time spent providing and/or coordinating discharge services: Physical Examination Vital Signs Vital signs: Temp Pulse Resp BP Pulse Ox 99.3 F H 92 H 16 140/70 94 03/13/20 08:00 03/13/20 08:00 03/13/20 08:00 03/13/20 08:00 03/13/20 08:00 General physical appearance General physical exam: well developed, well nourished and no distress Eyes Eye exam: PERRL and normal ocular movement ENT ENT exam: normal mucosa and no hearing loss Head Head exam IM: Present atraumatic, normal inspection and normocephalic Neck Neck exam: no masses, no bruits, trachea midline, no lymphadenopathy and no venous distension Cardiovascular Cardiovascular exam IM: Present normal rate and rhythm, RRR, +S1 and +S2; Absent gallop and JVD Respiratory Respiratory exam: normal expansion, normal respiratory effort and clear to ausc ultation Abdomen Abdomen: Present tender (tenderness in epigastrium and right upper quadrant with guarding) and bowel sounds (normal active bowel sounds) Integumentary Integumentary: Present no rash, no growths and no abnormal pigmentation Neurologic Neurologic: Present normal coordination and normal sensation; Absent memory loss Psychiatric Psychiatric: Present oriented to time, oriented to person, oriented to place, speech is normal and memory intact Discharge Plan Patient/Caregiver Discharge Instructions Activity: increase activity as tolerated Diet: Regular Diet and Low Fat Prescriptions: Continued aspirin 81 mg tablet,delayed release (DR/EC) 81 mg PO .COMPLEX RF: 0 glucosamine HCl 500 mg tablet 500 mg PO QDAY RF: 0 losartan 50 mg tablet 50 mg PO QDAY RF: 0 nitroglycerin 0.4 mg tablet, sublingual 0.4 mg SUBLINGUAL ONCE RF: 0 omeprazole 20 mg capsule,delayed release(DR/EC) 20 mg PO QDAY RF: 0 cholecalciferol (vitamin D3) 25 mcg (1,000 unit) capsule 25 mcg PO QDAY RF: 0 pramipexole 0.25 MG tablet 0.5 mg PO HS RF: 0 sertraline [Zoloft] 25 mg Tablet 25 mg PO QDAY RF: 0 atorvastatin 10 mg Tablet 10 mg PO QDAY RF: 0 Other Ambulatory Orders: [facility] (ONCE) Location: None Selected Ordered By: Jonny Giron Follow Up Plan Follow up with: Jonny Giron MD [Physician] - (contact the office on Tuesday to verify appointment in 2 weeks) Patient Disposition: Home, Self-Care Prognosis: Good Rehab Potential: Good I certify that the patient requires SNF services: No Overall status at discharge: patient is progressing back to baseline Discharge Orders: Discharge Order (Routine); Ordered 03/13/20 Ordered By: Jonny Giron Pending Pending Pending: Resuscitation Status Full Code Diet Full Liquid Diet Start TueMar 11 1646 Hydromorphone HCl (Dilaudid) 0.5 mg IV Q2HP PRN; Protocol PRN Reason: Per Pain Protocol Last Admin: 03/12/20 13:33 Dose: 0.5 mg Documented by: Admin: 03/12/20 09:55 Dose: 0.5 mg Documented by: Admin: 03/12/20 04:34 Dose: 0.5 mg Documented by: Admin: 03/12/20 00:00 Dose: 0.5 mg Documented by: Admin: 03/11/20 21:00 Dose: 0.5 mg Documented by: Admin: 03/11/20 16:54 Dose: 0.5 mg Documented by: DANO Piperacillin Sod/Tazobactam (Sod 3.375 gm/ Dextrose) 50 mls @ 100 mls/hr IV Q6H [facility]; Protocol Last Infusion: 03/13/20 06:33 Dose: 0 mls/hr Documented by: Admin: 03/13/20 05:58 Dose: 100 mls/hr Documented by: Infusion: 03/12/20 23:56 Dose: 100 mls/hr Documented by: Admin: 03/12/20 23:26 Dose: 100 mls/hr Documented by: Infusion: 03/12/20 17:35 Dose: 100 mls/hr Documented by: Admin: 03/12/20 17:05 Dose: 100 mls/hr Documented by: Infusion: 03/12/20 15:08 Dose: 0 mls/hr Documented by: Admin: 03/12/20 12:42 Dose: 100 mls/hr Documented by: Infusion: 03/12/20 09:21 Dose: 0 mls/hr Documented by: Admin: 03/12/20 05:24 Dose: 100 mls/hr Documented by: Infusion: 03/12/20 00:14 Dose: 100 mls/hr Documented by: Admin: 03/11/20 23:44 Dose: 100 mls/hr Documented by: Infusion: 03/11/20 17:35 Dose: 0 mls/hr Documented by: Admin: 03/11/20 17:03 Dose: 100 mls/hr Documented by: DANO Sodium Chloride (Sodium Chloride 0.9%) 1,000 mls @ 100 mls/hr IV .Q10H [facility] Last Admin: 03/13/20 03:18 Dose: 100 mls/hr Documented by: Infusion: 03/13/20 00:24 Dose: 100 mls/hr Documented by: Admin: 03/12/20 22:40 Dose: Not Given Documented by: Admin: 03/12/20 14:24 Dose: 100 mls/hr Documented by: Infusion: 03/12/20 12:31 Dose: 100 mls/hr Documented by: Admin: 03/12/20 11:58 Dose: Not Given Documented by: Admin: 03/12/20 02:31 Dose: 100 mls/hr Documented by: Infusion: 03/12/20 02:30 Dose: 100 mls/hr Documented by: Admin: 03/11/20 17:00 Dose: 100 mls/hr Documented by: DANO Losartan Potassium (Cozaar) 50 mg PO QDAY [facility] Last Admin: 03/13/20 07:53 Dose: 50 mg Documented by: Admin: 03/12/20 08:14 Dose: 50 mg Documented by: SOFÍA Magnesium Hydroxide (Milk Of Magnesia) 30 ml PO DAILYP PRN PRN Reason: Constipation Last Admin: 03/12/20 11:50 Dose: 30 ml Documented by: SOFÍA Metoclopramide HCl (Reglan) 10 mg IV Q6 [facility] Last Admin: 03/13/20 05:58 Dose: 10 mg Documented by: Admin: 03/12/20 23:26 Dose: 10 mg Documented by: Admin: 03/12/20 17:34 Dose: 10 mg Documented by: Admin: 03/12/20 11:50 Dose: 10 mg Documented by: Admin: 03/12/20 05:24 Dose: Not Given Documented by: MAKAYLA Pantoprazole Sodium (Protonix) 40 mg IV BIDAC [facility] Last Admin: 03/13/20 07:17 Dose: 40 mg Documented by: Admin: 03/12/20 17:05 Dose: 40 mg Documented by: Admin: 03/12/20 06:59 Dose: 40 mg Documented by: Admin: 03/11/20 16:58 Dose: 40 mg Documented by: DANO Sertraline HCl (Zoloft) 25 mg PO DAILY [facility] Last Admin: 03/13/20 07:52 Dose: 25 mg Documented by: Admin: 03/12/20 08:14 Dose: 25 mg Documented by: SOFÍA Simethicone (Mylicon) 80 mg CHEWED QIDP PRN PRN Reason: Dyspepsia Last Admin: 03/13/20 04:24 Dose: 80 mg Documented by: Admin: 03/12/20 21:06 Dose: 80 mg Documented by: Admin: 03/12/20 14:48 Dose: 80 mg Documented by: Admin: 03/12/20 04:52 Dose: 80 mg Documented by: MAKAYLA Shift Summary 03/13/20 04:38 Shift Summary by Jaz Lyon Patient alert and oriented x4. Slept off and on this shift. Needing to use the bathroom every 1-2 hours to void. Patient had 2 small liquid stool and 1 moderate, soft/liquid stool this shift. Patient complained of gas discomfort. Given Simethicone twice with moderate effect. On scheduled Reglan. On IV antibiotic, Zosyn. IV on RAC infiltrated. New IV placed on left wrist g.22. IVF NS@100 infusing well. Up with FWW and standby assist to the bathroom. Four lap sites, pk and tegaderm in place. Right abdomen JPx1 drained serosanguinous output, drained total of 120 mls this shift. SBP 140-150's mmHg manually taken on left arm. Sats 92% on room air. Complained of headache this shift but refused Roxicodone. Patient asked for tylenol. Explained to patient MD discontinued her Tylenol due to elevated LFTs. Patient remained on Aerosol Contact Isolation for COVID positive. Initialized on 03/13/20 04:38 - END OF NOTE
--- NOTE | 2020-03-14 12:10 | Surgical Pathology Report ---
Histology Microscopic Diagnosis Specimen A- GALLBLADDER, CHOLECYSTECTOMY: -- CHRONIC CHOLECYSTITIS WITH CHOLELITHIASIS. (EBD:adj) Procedural Impression Cholecystitis. Gross Description Received in formalin labeled gallbladder, is a 8.4 x 4.7 x 3.6 cm pink-chung gallbladder specimen. The majority of the serosa is smooth and glistening. Approximately 25% is rough and brown-chung. There are four metal clamps present, none of which are on the cystic duct. The cystic duct is closed with a staple line that is 1.6 cm. The mucosa has raised, firm areas throughout along with a ring that goes around the mucosa that is up to 1.1 cm in width. The wall is up to 0.8 cm thick. There are multiple black-chung stones found with the gallbladder specimen ranging in size from 0.2 up to 1.6 cm in greatest dimension. Disaster Response Director sections submitted in two cassettes. (KGW:adj) Electronically Signed Salma Whitney MD, FCAP Electronically Signed 03/14/2020 12:09 PM
== END 2020-03-13 13:15 | disposition home or self-care (01) | DRG 444 ==
LOC: ED 20:16 → MEDSUR 03-11 07:15 → INTOOBSV 03-11 07:15 → MEDSUR 03-11 07:22
PROVIDERS: ADMIT Family Medicine Adult Medicine; ATTEND Family Medicine Adult Medicine